=== PATIENT | female | born 1955 | race Caucasian/White ===

== ENCOUNTER 2021-08-27 10:33 | Outpatient (CLI) | payer BC | END 2021-08-27 10:34 | disposition home or self-care (01) | LOC: BICRAD 10:33 | PROVIDERS: ATTEND Nurse Practitioner Family | DX: M54.41 Lumbago with sciatica, right side (principal); M47.816 Spondylosis without myelopathy or radiculopathy, lumbar region; M51.16 Intervertebral disc disorders with radiculopathy, lumbar region | CPT/HCPCS: 72100 ==

== ENCOUNTER 2022-03-23 12:19 | Outpatient (CLI) | payer OTHER | END 2022-03-23 12:20 | disposition home or self-care (01) | LOC: TBSIIMAG 12:19 | PROVIDERS: ATTEND Nurse Practitioner Family | DX: M54.41 Lumbago with sciatica, right side (principal); R20.2 Paresthesia of skin; M51.36 Other intervertebral disc degeneration, lumbar region; M48.062 Spinal stenosis, lumbar region with neurogenic claudication; M25.78 Osteophyte, vertebrae; M51.25 Other intervertebral disc displacement, thoracolumbar region; M51.26 Other intervertebral disc displacement, lumbar region; M47.816 Spondylosis without myelopathy or radiculopathy, lumbar region | CPT/HCPCS: 36415; 72148; 80053; 80061; 83036; 84443; 85025 ==

== ENCOUNTER 2022-04-01 13:48 | Outpatient (CLI) | payer OTHER | END 2022-04-01 13:49 | disposition home or self-care (01) | LOC: RAD 13:48 | PROVIDERS: ATTEND Family Medicine | DX: M25.551 Pain in right hip (principal); M16.11 Unilateral primary osteoarthritis, right hip ==

== ENCOUNTER 2022-10-02 12:53 | Outpatient (CLI) | payer MEDICARE | END 2022-10-02 12:54 | disposition home or self-care (01) | LOC: SCSMRI 12:53 | PROVIDERS: ATTEND Orthopaedic Surgery | DX: M16.11 Unilateral primary osteoarthritis, right hip (principal); M25.451 Effusion, right hip; M65.851 Other synovitis and tenosynovitis, right thigh; Z96.641 Presence of right artificial hip joint ==

== ENCOUNTER 2022-10-16 11:58 | Outpatient (CLI) | payer MEDICARE | END 2022-10-16 11:59 | disposition home or self-care (01) | LOC: SCSRAD 11:58 | PROVIDERS: ATTEND Nurse Practitioner Family | DX: Z01.818 Encounter for other preprocedural examination (principal); M16.10 Unilateral primary osteoarthritis, unspecified hip; J45.22 Mild intermittent asthma with status asthmaticus; R20.2 Paresthesia of skin; Z01.812 Encounter for preprocedural laboratory examination; Z79.01 Long term (current) use of anticoagulants | CPT/HCPCS: 71046 ==

== ENCOUNTER 2024-01-17 09:58 | Outpatient (CLI) | payer MEDICARE | END 2024-01-17 09:59 | disposition home or self-care (01) | LOC: BICRAD 09:58 | PROVIDERS: ATTEND Nurse Practitioner Family | DX: R10.10 Upper abdominal pain, unspecified (principal); J98.4 Other disorders of lung | CPT/HCPCS: 36415; 71046; 80053; 82306; 82607; 83036; 84443; 85025 ==

== ENCOUNTER 2024-01-20 07:03 | Outpatient (CLI) | payer MEDICARE | END 2024-01-20 07:04 | disposition home or self-care (01) | LOC: BICULT 07:03 | PROVIDERS: ATTEND Nurse Practitioner Family | DX: R10.10 Upper abdominal pain, unspecified (principal) | CPT/HCPCS: 76700 ==

== ENCOUNTER 2024-01-27 13:04 | Outpatient (CLI) | payer MEDICARE | END 2024-01-27 13:05 | disposition home or self-care (01) | LOC: BICCT 13:04 | PROVIDERS: ATTEND Nurse Practitioner Family | DX: R10.9 Unspecified abdominal pain (principal) | CPT/HCPCS: 74178 ==